=== PATIENT | female | born 1950 | race Caucasian/White ===

== ENCOUNTER 2020-03-11 11:09 | Outpatient (REF) | payer MEDICARE, OTHER, SELFPAY | END 2020-03-11 11:10 | disposition home or self-care (01) | LOC: HO.BBR 11:09 | PROVIDERS: Visit Provider Internal Medicine Hematology & Oncology | DX: E83.110 Hereditary hemochromatosis (principal) | CPT/HCPCS: 99195 ==

== ENCOUNTER 2020-06-11 09:42 | Outpatient (REF) | payer MEDICARE, OTHER, SELFPAY | END 2020-06-11 09:43 | disposition home or self-care (01) | LOC: HO.BBR 09:42 | PROVIDERS: Visit Provider Internal Medicine Hematology & Oncology | DX: Z13.89 Encounter for screening for other disorder (principal) ==

== ENCOUNTER 2020-06-11 10:33 | Outpatient (REF) | payer SELFPAY ==
[2020-06-11 11:43] LABS: Cholesterol 250 mg/dL
== END 2020-06-11 10:34 | disposition home or self-care (01) ==
LOC: HO.LNC 10:33
PROVIDERS: Visit Provider Pathology Anatomic Pathology & Clinical Pathology
DX: Z13.89 Encounter for screening for other disorder (principal)
CPT/HCPCS: 36415; 82465

== ENCOUNTER 2020-08-12 07:58 | Outpatient (REF) | payer OTHER, MEDICARE, SELFPAY | END 2020-08-12 07:59 | disposition home or self-care (01) | LOC: HO.BBR 07:58 | PROVIDERS: Visit Provider Internal Medicine Hematology & Oncology | DX: Z13.89 Encounter for screening for other disorder (principal) ==

== ENCOUNTER 2020-10-14 10:52 | Outpatient (REF) | payer OTHER, MEDICARE, SELFPAY | END 2020-10-14 10:53 | disposition home or self-care (01) | LOC: HO.BBR 10:52 | PROVIDERS: Visit Provider Internal Medicine Hematology & Oncology | DX: Z13.89 Encounter for screening for other disorder (principal) ==

== ENCOUNTER 2020-12-15 11:10 | Outpatient (REF) | payer OTHER, MEDICARE, SELFPAY | END 2020-12-15 11:11 | disposition home or self-care (01) | LOC: HO.BBR 11:10 | PROVIDERS: Visit Provider Internal Medicine Hematology & Oncology | DX: Z13.89 Encounter for screening for other disorder (principal) ==

== ENCOUNTER 2021-02-23 09:56 | Outpatient (REF) | payer OTHER, MEDICARE, SELFPAY | END 2021-02-23 09:57 | disposition home or self-care (01) | LOC: HO.BBR 09:56 | PROVIDERS: Visit Provider Internal Medicine Hematology & Oncology | DX: Z13.89 Encounter for screening for other disorder (principal) ==

== ENCOUNTER 2021-03-10 12:24 | Outpatient (REF) | payer OTHER, MEDICARE, SELFPAY | END 2021-03-10 12:25 | disposition home or self-care (01) | LOC: HO.BBR 12:24 | PROVIDERS: Visit Provider Internal Medicine Hematology & Oncology | DX: Z13.89 Encounter for screening for other disorder (principal) ==

== ENCOUNTER 2021-05-06 10:06 | Outpatient (REF) | payer MEDICARE, OTHER, SELFPAY | END 2021-05-06 10:07 | disposition home or self-care (01) | LOC: HO.BBR 10:06 | PROVIDERS: Visit Provider Internal Medicine Hematology & Oncology | DX: Z13.89 Encounter for screening for other disorder (principal) ==

== ENCOUNTER 2021-07-07 09:56 | Outpatient (REF) | payer MEDICARE, OTHER, SELFPAY | END 2021-07-07 09:57 | disposition home or self-care (01) | LOC: HO.BBR 09:56 | PROVIDERS: Visit Provider Internal Medicine Hematology & Oncology | DX: Z13.89 Encounter for screening for other disorder (principal) ==

== ENCOUNTER 2021-10-27 09:16 | Outpatient (REF) | payer MEDICARE, OTHER, SELFPAY | END 2021-10-27 09:17 | disposition home or self-care (01) | LOC: HO.BBR 09:16 | PROVIDERS: Visit Provider Internal Medicine Hematology & Oncology | DX: Z13.89 Encounter for screening for other disorder (principal) ==

== ENCOUNTER 2021-12-15 11:07 | Outpatient (REF) | payer MEDICARE, OTHER, SELFPAY | END 2021-12-15 11:08 | disposition home or self-care (01) | LOC: HO.BBR 11:07 | PROVIDERS: Visit Provider Internal Medicine Hematology & Oncology | DX: Z13.89 Encounter for screening for other disorder (principal) ==

== ENCOUNTER 2022-02-09 13:47 | Outpatient (REF) | payer MEDICARE, OTHER, SELFPAY | END 2022-02-09 13:48 | disposition home or self-care (01) | LOC: HO.BBR 13:47 | PROVIDERS: Visit Provider Internal Medicine Hematology & Oncology | DX: Z13.89 Encounter for screening for other disorder (principal) ==

== ENCOUNTER 2022-04-06 09:06 | Outpatient (REF) | payer MEDICARE, OTHER, SELFPAY | END 2022-04-06 09:07 | disposition home or self-care (01) | LOC: HO.BBR 09:06 | PROVIDERS: Visit Provider Internal Medicine Hematology & Oncology | DX: Z13.89 Encounter for screening for other disorder (principal) ==

== ENCOUNTER 2022-06-01 08:52 | Outpatient (REF) | payer MEDICARE, OTHER, SELFPAY | END 2022-06-01 08:53 | disposition home or self-care (01) | LOC: HO.BBR 08:52 | PROVIDERS: Visit Provider Internal Medicine Hematology & Oncology | DX: Z13.89 Encounter for screening for other disorder (principal) ==

== ENCOUNTER 2022-07-28 08:53 | Outpatient (REF) | payer MEDICARE, OTHER, SELFPAY | END 2022-07-28 08:54 | disposition home or self-care (01) | LOC: HO.BBR 08:53 | PROVIDERS: Visit Provider Internal Medicine Hematology & Oncology | DX: Z13.89 Encounter for screening for other disorder (principal) ==

== ENCOUNTER 2022-10-05 11:46 | Outpatient (REF) | payer MEDICARE, OTHER, SELFPAY | END 2022-10-05 11:47 | disposition home or self-care (01) | LOC: HO.BBR 11:46 | PROVIDERS: Visit Provider Internal Medicine Hematology & Oncology | DX: Z13.89 Encounter for screening for other disorder (principal) ==

== ENCOUNTER 2022-11-30 09:50 | Outpatient (REF) | payer MEDICARE, OTHER, SELFPAY | END 2022-11-30 09:51 | disposition home or self-care (01) | LOC: HO.BBR 09:50 | PROVIDERS: Visit Provider Internal Medicine Hematology & Oncology | DX: Z13.89 Encounter for screening for other disorder (principal) ==

== ENCOUNTER 2023-03-02 12:07 | Outpatient (REF) | payer MEDICARE, OTHER, SELFPAY | END 2023-03-02 12:08 | disposition home or self-care (01) | LOC: HO.BBR 12:07 | PROVIDERS: Visit Provider Internal Medicine Hematology & Oncology | DX: Z13.89 Encounter for screening for other disorder (principal) ==

== ENCOUNTER 2023-05-03 10:01 | Outpatient (REF) | payer MEDICARE, OTHER, SELFPAY | END 2023-05-03 10:02 | disposition home or self-care (01) | LOC: HO.BBR 10:01 | PROVIDERS: Visit Provider Internal Medicine Hematology & Oncology | DX: Z13.89 Encounter for screening for other disorder (principal) ==

== ENCOUNTER 2023-06-28 08:43 | Outpatient (REF) | payer MEDICARE, OTHER, SELFPAY | END 2023-06-28 08:44 | disposition home or self-care (01) | LOC: HO.BBR 08:43 | PROVIDERS: Visit Provider Internal Medicine Hematology & Oncology | DX: Z13.89 Encounter for screening for other disorder (principal) ==

== ENCOUNTER 2023-08-28 10:42 | Outpatient (REF) | payer MEDICARE, OTHER, SELFPAY | END 2023-08-28 10:43 | disposition home or self-care (01) | LOC: HO.BBR 10:42 | PROVIDERS: Visit Provider Internal Medicine Hematology & Oncology | DX: Z13.89 Encounter for screening for other disorder (principal) ==

== ENCOUNTER 2023-10-27 10:48 | Outpatient (REF) | payer MEDICARE, OTHER, SELFPAY | END 2023-10-27 10:49 | disposition home or self-care (01) | LOC: HO.BBR 10:48 | PROVIDERS: Visit Provider Internal Medicine Hematology & Oncology | DX: Z13.89 Encounter for screening for other disorder (principal) ==

== ENCOUNTER 2023-12-22 09:50 | Outpatient (REF) | payer MEDICARE, OTHER, SELFPAY | END 2023-12-22 09:51 | disposition home or self-care (01) | LOC: HO.BBR 09:50 | PROVIDERS: Visit Provider Internal Medicine Hematology & Oncology | DX: Z13.89 Encounter for screening for other disorder (principal) ==

== ENCOUNTER 2024-02-16 09:38 | Outpatient (REF) | payer MEDICARE, OTHER, SELFPAY | END 2024-02-16 09:39 | disposition home or self-care (01) | LOC: HO.BBR 09:38 | PROVIDERS: Visit Provider Internal Medicine Hematology & Oncology | DX: Z13.89 Encounter for screening for other disorder (principal) ==

== ENCOUNTER 2024-06-14 09:48 | Outpatient (REF) | payer MEDICARE, OTHER, SELFPAY | END 2024-06-14 09:49 | disposition home or self-care (01) | LOC: HO.BBR 09:48 | PROVIDERS: Visit Provider Internal Medicine Hematology & Oncology | DX: Z13.89 Encounter for screening for other disorder (principal) ==

== ENCOUNTER 2024-08-14 09:45 | Outpatient (REF) | payer MEDICARE, OTHER, SELFPAY ==
--- OUTSIDE RECORDS SUMMARY | 2024-08-14 10:54 | XMS_ITS | Clinical Summary ---
Author Organization [address] [place] [address] Address [address] [place] [address] Phone Care Team Providers Care Sales Expert Name Role Phone Lila Vargas MD Primary Care Provider [phone] Allergies Active Allergy Reactions Criticality Noted Date Comments Chlorhexidin-Isopropyl Alcohol 03/10 Medications apixaban (Eliquis) 5 mg tablet Take 1 tablet (5 mg total) by mouth 2 (two) times a day. NOT TAKING 4 Active sertraline (ZOLOFT) 50 mg tablet Take 1 tablet (50 mg total) by mouth 1 (one) time each day. Active torsemide (DEMADEX) 20 mg tablet TAKE 1 TABLET DAILY 90 tablet 1 4 Active dilTIAZem CD (CARDIZEM CD) 180 mg 24 hr capsule Take 1 capsule (180 mg total) by mouth 1 (one) time each day. 90 each 2 5 11/11/19 25 Active dronedarone (Multaq) 400 mg tablet Take 1 tablet (400 mg total) by mouth 2 (two) times a day with meals. 08/13/19 25 Discontinu ed(Therapy completed) dilTIAZem CD (CARDIZEM CD) 120 mg 24 hr capsule Take 1 capsule (120 mg total) by mouth 1 (one) time each day. 90 capsule 3 4 08/13/19 25 Discontinu ed(Therapy completed) Active Problems Problem Noted Date Diagnosed Date PAF (paroxysmal atrial fibrillation) 06/03/2024 Primary hypertension 06/03/2024 Bilateral leg edema 06/03/2024 Hereditary hemochromatosis 05/26/2020 Encounters Date Type Department Care Team Description 08/12/2024 1:10 PM EDT Office Visit [facility] - [facility] [address] [facility] [address] [place] [address] Mackenzie Rodriguez PA Paroxysmal atrial fibrillation (CMS/HCC) (Primary Dx); Primary hypertension; Lower leg edema; PAF (paroxysmal atrial fibrillation) (CMS/HCC); Bilateral leg edema 07/02/2024 11:00 AM EST Office Visit [facility] [address] [place] [id number] Benny Decker MD Hereditary hemochromatosis (CMS/HCC) (Primary Dx) 06/03/2024 12:40 PM EST Office Visit [facility] [address] [facility] [address] [place] [address] Mackenzie Rodriguez PA Paroxysmal atrial fibrillation (CMS/HCC) (Primary Dx); Primary hypertension; PAF (paroxysmal atrial fibrillation) (CMS/HCC) from Last 3 Months Surgical History Surgery Date Site/Laterality Comments ABLATION DONE ON 05/06/2024 AT [facility] W SR INDICATIONS:ATRIAL FIBRILLATIONS Family History Medical History Relation Name Comments Hypertension Father Relation Name Status Comments Father Social History Tobacco Use Types Packs/Day Years Used Date Smoking Tobacco: Former Cigarettes Q uit: 06/05/1999 Smokeless Tobacco: Never Tobacco Cessation:Counseling Given: Not Answered Alcohol Use Standard Drinks/Week Comments Yes 1 (1 standard drink = 0.6 oz pur e alcohol) Comments Unknown Sex and Gender Information Value Date Recorded Sex Assigned at Not on file Legal Sex Female 10:04 PM EST Gender Identity Not on file Sexual Orientation Not on file Obstetrics History Last Filed Vital Signs Vital Sign Reading Time Taken Comments Blood Pressure 147/74 08/12/2024 12:52 PM EDT Patient Blood pressure cuff Pulse 87 08/12/2024 12:52 PM EDT Patietnt blood pressure cuff Temperature 36.8 ??C (98.3 ??F) 07/02/2024 1 0:58 AM EST Respiratory Rate - - Oxygen Saturation 97% 08/12/2024 12: 45 PM EDT Inhaled Oxygen Concentration - - Weight 82.6 kg (182 lb 3.2 oz) 08/12/2024 12:45 PM EDT Height 162.6 cm (5' 4 ) 08/12/2024 12:4 5 PM EDT Body Mass Index 31.27 08/12/2024 12:45 PM EDT Plan of Treatment Upcoming Encounters Date Type Department Care Team (Late st Contact Info) Description 02/17/2025 1:10 PM EDT Office Visit [facility] - [address] [place] [phone] Mackenzie Rodriguez PA [address] [place] [address] [place] [address] 07/02/2025 11:00 AM EST Office Visit [facility] [address] [place] [address] Benny Decker MD [address] [place] [address] Health Maintenance Due Date Last Done Comments Breast Cancer Screening 1950 DTaP,Tdap,and Td Vaccines (1 - Tdap) 1971 Cholesterol Screening (Lipid Panel) 05/14/2022 Colorectal Cancer Screening: Colonoscopy 05/14/2022 Depression Screening 05/14/2022 Falls Risk Assessment 05/14/2022 Hepatitis C Screening 05/14/2022 Osteoporosis Screening (Bone Density Screening) 05/14/2022 Social Influencers of Health Screening 05/14/2022 Medicare Annual Wellness Visit 12/23/2023 12/22/2022 COVID-19 Vaccine ( season) 2024 04/06/2022, 04/01/2021, 08/18/2020, Additional history exists Influenza Vaccine (#1) 2024 , 03/30/2022, 02/24/2021, Additional history exists Hypertension/CHF/CAD Annual BMP Blood Test 06/27/2025 06/27/2024, 05/03/2024 Pneumococcal Vaccine: 50+ Years Completed 12/21/2021, 06/19/2017 Zoster Vaccines Completed 06/06/2022, 03/30/2022 RSV Immunization Patients 60+ Years Old Completed 05/03/2023 HIB Vaccines Aged Out No longer eligi ble based on patient's age to complete this topic HPV Vaccines Aged Out No longer eligi ble based on patient's age to complete this topic Hepatitis A Vaccines Aged Out No long er eligible based on patient's age to complete this topic Hepatitis B Vaccines Aged Out No long er eligible based on patient's age to complete this topic IPV Vaccines Aged Out No longer eligi ble based on patient's age to complete this topic MMR Vaccines Aged Out No longer eligi ble based on patient's age to complete this topic Meningococcal ACWY Vaccine Aged Out N o longer eligible based on patient's age to complete this topic Meningococcal B Vacine Aged Out No lo nger eligible based on patient's age to complete this topic RSV Immunization Patients Under 20 months Aged Out No longer eligible based on patient's age to complete this topic Varicella Vaccines Aged Out No longer eligible based on patient's age to complete this topic Procedures Procedure Name Priority Date/Time Associated Diagnosis Comments ECG 12-LEAD Routine 08/12/2024 1:24 PM EDT Paroxysmal atrial fibrillation (CMS/HCC) ..MISCELLANEOUS REFERENCE LAB TEST 07/02/2024 ..MISCELLANEOUS REFERENCE LAB TEST 07/02/2024 ..MISCELLANEOUS REFERENCE LAB TEST 07/02/2024 CBC WITH AUTO DIFFERENTIAL Routine 06/27/2024 3:11 PM EST Hereditary hemochromatosis (CMS/HCC) COMPREHENSIVE METABOLIC PANEL Routine 06/27/2024 3:11 PM EST Hereditary hemochromatosis (CMS/HCC) FERRITIN Routine 06/27/2024 3:11 PM EST Hereditary hemochromatosis (CMS/HCC) CBC AND DIFFERENTIAL Routine 06/27/2024 3:11 PM EST Hereditary hemochromatosis (CMS/HCC) IRON AND TIBC Routine 06/27/2024 3:11 PM EST Hereditary hemochromatosis (CMS/HCC) ECG 12-LEAD Routine 06/03/2024 1:09 PM EST Paroxysmal atrial fibrillation (CMS/HCC) from Last 3 Months Results * ECG 12 lead (08/12/2024 1:24 PM EDT) Only the most recent of2 resultswithin the time period is included. Ventricular Rate ECG 69 BPM GEMUSE Atrial Rate 69 BPM GEMUSE P-R Interval 152 ms GEMUSE QRS Duration 94 ms GEMUSE Q-T Interval 426 ms GEMUSE QTc 456 ms GEMUSE P Wave [place] 77 degrees GEMUSE R [place] 97 degrees GEMUSE T [place] 7 degrees GEMUSE ECG Interpretation Sinus rhythm with occasional Premature ventricular complexes Nonspecific ST abnormality When compared with ECG of 03-JUN-2024 12:43, No significant change was found Confirmed by INOCENTE KAPOOR ([id number]) on 08/13/2024 12:39:51 PM GEMUSE 08/12/2024 12:5 6 PM EDT 08/13/2024 12:39 PM EDT Mackenzie NICHOLAS ECG ORDERABLES Edited Result - Final GEMUSE * Miscellaneous reference lab test (07/02/2024) Only the most recent of3 resultswithin the time period is included. us Provider Onbase MD LAB BLOOD ORDERABLES Final Re sult * (ABNORMAL) CBC auto differential (06/27/2024 3:11 PM EST) Pathologist [facility] WBC 5.7 4.8 - 10.8 K/mcL LAB HEMETOLOGY METHOD 06/27/2024 6:31 PM EST [facility] RBC 3.80 3.80 - 4.80 M/mcL LAB HEMETOLOGY METHOD 06/27/2024 6:31 PM EST [facility] Hemoglobin 12.3 11.5 - 16.0 g/dL LAB HEMETOLOGY METHOD 06/27/2024 6:[address] [facility] Hematocrit 37.2 35.0 - 47.0 % LAB HEMETOLOGY METHOD 06/27/2024 6:[address] [facility] MCV 98.4(H) 79.0 - 98.0 FL LAB HEMETOLOGY METHOD 06/27/2024 6:[address] [facility] MCH 32.5(H) 27.0 - 32.0 pcg LAB HEMETOLOGY METHOD 06/27/2024 6:[address] [facility] MCHC 33.1 32.0 - 37.0 g/dL LAB HEMETOLOGY METHOD 06/27/2024 6:[address] [facility] RDW 13.9 11.0 - 15.0 % LAB HEMETOLOGY METHOD 06/27/2024 6:[address] [facility] Platelets 173 130 - 400 K/mcL LAB HEMETOLOGY METHOD 06/27/2024 6:[address] [facility] MPV 11.7(H) 7.0 - 11.0 FL LAB HEMETOLOGY METHOD 06/27/2024 6:[address] [facility] NRBC 0.0 <1.0 % LAB HEMETOLOGY METHOD 06/27/2024 6:[address] [facility] NRBC Absolute 0.00 <0.10 K/mcL LAB HEMETOLOGY METHOD 06/27/2024 6:[address] [facility] Neutrophils Relative 55.9 % LAB HEMETOLOGY METHOD 06/27/2024 6:[address] [facility] Lymphocytes Relative 33.1 % LAB HEMETOLOGY METHOD 06/27/2024 6:[address] [facility] Monocytes Relative 7.9 % LAB HEMETOLOGY METHOD 06/27/2024 6:[address] [facility] Eosinophils Relative 2.5 % LAB HEMETOLOGY METHOD 06/27/2024 6:31 PM EST [facility] Basophils Relative 0.4 % LAB HEMETOLOGY METHOD 06/27/2024 6:31 PM EST [facility] Immature Granulocytes Relative 0.2 % LAB HEMETOLOGY METHOD 06/27/2024 6:[address] [facility] Neutrophils Absolute 3.20 1.50 - 7.00 K/mcL LAB HEMETOLOGY METHOD 06/27/2024 6:31 PM EST [facility] Lymphocytes Absolute 1.89 1.00 - 5.00 K/mcL LAB HEMETOLOGY METHOD 06/27/2024 6:[address] [facility] Monocytes Absolute 0.45 0.20 - 1.00 K/mcL LAB HEMETOLOGY METHOD 06/27/2024 6:[address] [facility] Eosinophils Absolute 0.14 0.00 - 0.50 K/mcL LAB HEMETOLOGY METHOD 06/27/2024 6:31 PM EST [facility] Basophils Absolute 0.02 0.00 - 0.20 K/mcL LAB HEMETOLOGY METHOD 06/27/2024 6:[address] [facility] Immature Granulocytes Absolute 0.01 0.00 - 0.03 K/mcL LAB HEMETOLOGY METHOD 06/27/2024 6:31 PM EST [facility] Blood Venous blood specimen / Unknown Venipuncture / Unknown 06/27/2024 3:11 PM EST 06/27/2024 3:11 PM EST us Benny Decker MD LAB BLOOD ORDERABLES Final Result [facility] [address] [place] [address], * Iron and TIBC (06/27/2024 3:11 PM EST) Iron 60 40 - 150 mcg/dL LAB CHEMISTRY METHOD 06/27/2024 6:48 PM EST [facility] TIBC 308 250 - 450 mcg/dL LAB CHEMISTRY METHOD 06/27/2024 6:[address] [facility] Iron Saturation 19 15 - 50 % LAB CHEMISTRY METHOD 06/27/2024 6:[address] [facility] Blood Venous blood specimen / Unknown Venipuncture / Unknown 06/27/2024 3:11 PM EST 06/27/2024 3:11 PM EST us Benny Decker MD LAB BLOOD ORDERABLES Final Result Performing Organization Address [facility]/ZIP Co de Phone Number [facility] [address] [place] [address], [place] [phone] * Ferritin (06/27/2024 3:11 PM EST) Ferritin 22 8 - 252 ng/mL LAB CHEMISTRY METHOD 06/27/2024 6:[address] [facility] Blood Venous blood specimen / Unknown Venipuncture / Unknown 06/27/2024 3:11 PM EST 06/27/2024 3:11 PM EST us Benny Decker MD LAB BLOOD ORDERABLES Final Result Performing Organization Address [facility]/ZIP Co de Phone Number [facility] [address] [place] [address], [place] [phone] * (ABNORMAL) Comprehensive metabolic panel (06/27/2024 3:11 PM EST) Sodium 139 133 - 145 mmol/L LAB CHEMISTRY METHOD 06/27/2024 6:[address] [facility] Potassium 3.6 3.5 - 5.5 mmol/L LAB CHEMISTRY METHOD 06/27/2024 6:[address] [facility] Chloride 102 96 - 110 mmol/L LAB CHEMISTRY METHOD 06/27/2024 6:[address] [facility] CO2 30 21 - 32 mmol/L LAB CHEMISTRY METHOD 06/27/2024 6:[address] [facility] Anion Gap 7 3 - 11 LAB CHEMISTRY METHOD 06/27/2024 6:[address] [facility] Glucose 79 70 - 100 mg/dL LAB CHEMISTRY METHOD 06/27/2024 6:[address] [facility] BUN 10 5 - 25 mg/dL LAB CHEMISTRY METHOD 06/27/2024 6:[address] [facility] Creatinine 0.80 0.50 - 1.10 mg/dL LAB CHEMISTRY METHOD 06/27/2024 6:[address] [facility] eGFR 78 >=60 mL/min/1. 73m2 LAB CHEMISTRY METHOD 06/27/2024 6:[address] [facility] Comment:Calculation based on the??Chronic Kidney Disease Epidemiology Collaboration (CKD-EPI) equation refit??without adjustment for race. BUN/Creatinine Ratio 12.5 LAB CHEMISTRY METHOD 06/27/2024 6:[address] [facility] Calcium 8.4(L) 8.5 - 10.5 mg/dL LAB CHEMISTRY METHOD 06/27/2024 6:[address] [facility] AST (SGOT) 18 10 - 42 unit/L LAB CHEMISTRY METHOD 06/27/2024 6:[address] [facility] ALT (SGPT) 21 10 - 60 unit/L LAB CHEMISTRY METHOD 06/27/2024 6:[address] [facility] Alkaline Phosphatase 72 42 - 121 unit/L LAB CHEMISTRY METHOD 06/27/2024 6:[address] [facility] Total Protein 7.0 6.0 - 8.0 g/dL LAB CHEMISTRY METHOD 06/27/2024 6:[address] [facility] Albumin 3.6 3.2 - 5.0 g/dL LAB CHEMISTRY METHOD 06/27/2024 6:[address] [facility] Total Bilirubin 0.3 0.0 - 1.4 mg/dL LAB CHEMISTRY METHOD 06/27/2024 6:48 PM EST [facility] Blood Venous blood specimen / Unknown Venipuncture / Unknown 06/27/2024 3:11 PM EST 06/27/2024 3:11 PM EST us Benny Decker MD LAB BLOOD ORDERABLES Final Result [facility] [address] [place] [address], [place] [phone] from Last 3 Months Insurance MEDICARE [facility] Care Teams Sales Expert Relationship Specialty Start Date End Date Lila Vargas MD [address] [facility] [address] [place] [address] PCP - General Internal Medicine 05/03/24
--- OUTSIDE RECORDS SUMMARY | 2024-08-14 10:54 | XMS_ITS | Encounter Summary ---
Author Organization [facility] Address [address] [place] [address] Care Team Providers Care Approver Name Role Phone Lila Vargas MD Primary Care Provider [phone] Reason for Visit * Reason Comments Follow-up Encounter Details Date Type Department Care Team (Late st Contact Info) Description 08/12/2024 1:10 PM EDT Office Visit [facility] - [address] [place] [address] Mackenzie Rodriguez PA [address] [place] [address] Paroxysmal atrial fibrillation (CMS/HCC) (Primary Dx); Primary hypertension; Lower leg edema; PAF (paroxysmal atrial fibrillation) (CMS/HCC); Bilateral leg edema Social History Tobacco Use Types Packs/Day Years [...] on file Sexual Orientation Not on file documented as of this encounter Last Filed Vital Signs Vital Sign Reading Time Taken Comments Blood Pressure 147/74 08/12/2024 12:52 PM EDT Patient Blood pressure cuff Pulse 87 08/12/2024 12:52 PM EDT Patietnt blood pressure cuff Temperature - - Respiratory Rate - - Oxygen Saturation 97% 08/12/2024 12: 45 PM EDT Inhaled Oxygen Concentration - - Weight 82.6 kg (182 lb 3.2 oz) 08/12/2024 12:45 PM EDT Height 162.6 cm (5' 4 ) 08/12/2024 12:4 5 PM EDT Body Mass Index 31.27 08/12/2024 12:45 PM EDT documented in this encounter Ordered Prescriptions Prescription Sig Dispense Quantity Refills Last Filled Start Date End Date dilTIAZem CD (CARDIZEM CD) 180 mg 24 hr capsule Take 1 capsule (180 mg total) by mouth 1 (one) time each day. 90 each 2 08/12/2024 documented in this encounter Progress Notes * YU Salinas - 08/12/2024 1:10 PM EDT Please call with any questions or concerns Mackenzie Rodriguez PA-C [phone] [facility] [address] [place] [id number] Increase torsemide to 40 mgs daily Repeat labs in one week non fasting Monitor BP at home aafter 10 mins of rest goal < 130 /80 Report back in 2 weeks with BP log and if your legs are better * YU Salinas - 08/12/2024 1:10 PM EDT Images from the original note were not included. PRIMARY SHAKE TABLE OPERATOR: Jose Dye MD PCP: MD Michelle Liriano Hernesto is a 74 y.o. old female Past medical history includes PAF noted May 2019 - underwent successful A. fib ablation with PVI on February 2021. She had recurrent A-fib Jan 2024 underwent VIRAJ cardioversion and Multaq was initiated for suppression- May 2024- underwent left atrial posterior wall isolation by PFA, EP study confirmation of isolation of all pulmonary veins. CHADS Vasc score 3- gender, age, HTN - chronically on AC , multaq stopped after 2 months Hypertension Prior smoking Possible Raynaud's phenomenon Hereditary hemochromatosis Mild SCOTT with sustained hypoxemia- pt would not use CPAP Cardiac testing- - Echo March 2024 mildly dilated left atrium EF 55 to 60% in A-fib mild TR Presents today for evaluation of her A-fib. She notes numerous sodium indiscretions with worsening lower leg edema her blood pressure has been borderline control at home mostly in the high 130s systolic. She continues to consume alcohol 2 to 3 glasses of wine a day will be leaving for [place] at the first week of September. She has had no perceived recurrent A-fib uses her cardia mobile and a blood pressure cuff with no elevated heart rates. She denies presyncope, syncope, chest pain at rest or exertion, dyspnea at rest or exertion, orthopnea, PND positive for lower leg edema admits she has been quite sedentary over the last few weeks. ACTIVE MEDICATIONS: Outpatient Medications Marked as Taking for the 08/12/24 encounter (Office Visit) with YU Salinas Medication Sig Dispense Refill apixaban (Eliquis) 5 mg tablet Take 1 tablet (5 mg total) by mouth 2 (two) times a day. NOT TAKING sertraline (ZOLOFT) 50 mg tablet Take 1 tablet (50 mg total) by mouth 1 (one) time each day. torsemide (DEMADEX) 20 mg tablet TAKE 1 TABLET DAILY 90 tablet 1 [DISCONTINUED] dilTIAZem CD (CARDIZEM CD) 120 mg 24 hr capsule Take 1 capsule (120 mg total) by mouth 1 (one) time each day. 90 capsule 3 [DISCONTINUED] dronedarone (Multaq) 400 mg tablet Take 1 tablet (400 mg total) by mouth 2 (two) times a day with meals. ALLERGIES: Allergies Allergen Reactions Chlorhexidin-Isopropyl Alcohol FAMILY HISTORY: Family History Problem Relation Name Age of Onset Hypertension Father SOCIAL HISTORY: Social History Tobacco Use Smoking status: Former Current packs/day: 0.00 Types: Cigarettes Quit date: 06/05/1999 Years since quittin.2 Smokeless tobacco: Never Substance Use Topics Alcohol use: Yes Alcohol/week: 1.0 - 2.0 standard drink of alcohol PHYSICAL EXAM: Blood pressure (!) 147/74, pulse 87, height 1.626 m (64 ), weight 82.6 kg (182 lb 3.2 oz), SpO2 97%. Body mass index is 31.27 kg/m??. Physical Exam Constitutional: General: She is not in acute distress. Appearance: She is obese. She is not diaphoretic. Eyes: Pupils: Pupils are equal, round, and reactive to light. Neck: Vascular: No carotid bruit. Cardiovascular: Rate and Rhythm: Normal rate and regular rhythm. Heart sounds: Normal heart sounds. Pulmonary: Breath sounds: Normal breath sounds. Abdominal: Palpations: Abdomen is soft. Musculoskeletal: General: No swelling. Cervical back: No rigidity. Right lower leg: Edema present. Left lower leg: Edema present. Comments: Bilateral 1-2+ mid tib edema Skin: General: Skin is warm and dry. Coloration: Skin is not jaundiced. Neurological: General: No focal deficit present. Mental Status: She is alert and oriented to person, place, and time. Psychiatric: Mood and Affect: Mood normal. EKG: Sinus rhythm with a PAC rate 69 bpm PAST MEDICAL HISTORY: Patient Active Problem List Diagnosis Date Noted PAF (paroxysmal atrial fibrillation) (CMS/HCC) 06/03/2024 Primary hypertension 06/03/2024 Bilateral leg edema 06/03/2024 Hereditary hemochromatosis (CMS/HCC) 05/26/2020 As per AHA guidelines and previously established plan of care by Dr. Darrian Ghosh MD we discussed the following today: ASSESSMENT/PLAN: Problem List Items Addressed This Visit Bilateral leg edema PAF (paroxysmal atrial fibrillation) (CMS/HCC) Relevant Medications dilTIAZem CD (CARDIZEM CD) 180 mg 24 hr capsule Primary hypertension Relevant Medications dilTIAZem CD (CARDIZEM CD) 180 mg 24 hr capsule Other Relevant Orders Basic metabolic panel N-Terminal Probnp Other Visit Diagnoses Paroxysmal atrial fibrillation (CMS/HCC) - Primary Relevant Medications dilTIAZem CD (CARDIZEM CD) 180 mg 24 hr capsule Other Relevant Orders ECG 12 lead (Completed) Basic metabolic panel N-Terminal Probnp Lower leg edema Relevant Orders Basic metabolic panel N-Terminal Probnp Stage IIId PAF status post ablation as [id number] score 4 risk benefits of long-term anticoagulation reviewed and agrees to continue. Multaq was discontinued a month ago no perceived recurrence. Encouraged to abstain from alcohol and caffeine. Lower leg edema after numerous dietary indiscretions and daily alcohol and untreated SCOTT-increase torsemide to 40 mg daily with surveillance labs in 1 week. If significant improvement in lower leg edema she can reduce back to 20 mg daily and take an additional 2-3 times a week as needed if blood work is stable. Reviewed the importance of sodium restriction, suggested knee-high compression stockings elevate legs when sitting ambulate every hour. Hypertension with decreasing diltiazem blood pressure has risen she resumed Cardizem 180 mg daily with improvement but not well-controlled. Increase torsemide as above with continued monitoring of her blood pressure goal consistently less than 130/80 after 10 minutes of rest. She is can call me in 2 weeks prior to leaving for [place] to review her blood pressures as well as any improvement in lower leg edema. Thank you for allowing us to participate in the care of this patient. Today's documentation was made using voice recognition software.This note may contain grammatical errors secondary to this software. Cosigned by Darrian Ghosh MD at 08/13/2024 5:18 PM EDT documented in this encounter Plan of Treatment Upcoming Encounters Date Type Department Care Team (Late st Contact Info) Description 02/17/2025 1:10 PM EDT Office Visit [facility] - [address] [place] [id number] Mackenzie Rodriguez PA [address] [place] [address] 07/02/2025 11:00 AM EST Office Visit [facility] [address] [place] [address] Benny Decker MD [address] [place] [address] Scheduled Orders Name Type Priority Associated Diagnoses Orde r Schedule Basic metabolic panel Lab Routine Paroxysmal atrial fibrillation (CMS/HCC) Primary hypertension Lower leg edema 1 Occurrences starting 08/12/2024 until 08/12/2025 N-Terminal Probnp Lab Routine Paroxysmal atrial fibrillation (CMS/HCC) Primary hypertension Lower leg edema 1 Occurrences starting 08/12/2024 until 08/12/2025 documented as of this encounter Procedures Procedure Name Priority Date/Time Associated Diagnosis Comments ECG 12-LEAD Routine 08/12/2024 1:24 PM EDT Paroxysmal atrial fibrillation (CMS/HCC) documented in this encounter Results * ECG 12 lead (08/12/2024 1:24 PM EDT) Ventricular Rate ECG 69 BPM GEMUSE Atrial Rate 69 BPM GEMUSE P-R Interval 152 ms GEMUSE QRS Duration 94 ms GEMUSE Q-T Interval 426 ms GEMUSE QTc 456 ms GEMUSE P Wave [place] 77 degrees GEMUSE R [place] 97 degrees GEMUSE T [place] 7 degrees GEMUSE ECG Interpretation Sinus rhythm with occasional Premature ventricular complexes Nonspecific ST abnormality When compared with ECG of 03-JUN-2024 12:43, No significant change was found Confirmed by INOCENTE KAPOOR ([id number]) on 08/13/2024 12:39:51 PM GEMUSE 08/12/2024 12:5 6 PM EDT 08/13/2024 12:39 PM EDT us Mackenzie NICHOLAS ECG ORDERABLES Edited Result - Final GEMUSE documented in this encounter Visit Diagnoses Diagnosis Paroxysmal atrial fibrillation (CMS/HCC)- Primary Atrial fibrillation Primary hypertension Unspecified essential hypertension Lower leg edema PAF (paroxysmal atrial fibrillation) (CMS/HCC) Atrial fibrillation Bilateral leg edema Edema documented in this encounter Discontinued Medications Medication Sig Discontinue Reason Start Date End Da te dronedarone (Multaq) 400 mg tablet Take 1 tablet (400 mg total) by mouth 2 (two) times a day with meals. Therapy completed 08/12/2024 dilTIAZem CD (CARDIZEM CD) 120 mg 24 hr capsule Take 1 capsule (120 mg total) by mouth 1 (one) time each day. Therapy completed 06/03/2024 08/12/2024 documented as of this encounter Care Teams Approver Relationship Specialty Start Date End Date Lila Vargas MD [address] [place] [address] PCP - General Internal Medicine 05/03/24 documented as of this encounter
--- OUTSIDE RECORDS SUMMARY | 2024-08-14 10:54 | XMS_ITS | Clinical Summary ---
Author Organization [facility] Address [address] [place] [address] Care Team Providers Care Neonatal Specialist Name Role Phone Lila Vargas MD Primary Care Provider [phone] Allergies No known active allergies Medications Medication Sig Dispensed Refills Start Date End Date Status torsemide (DEMADEX) 20 MG tablet Take 1 tablet (20 mg total) by mouth daily. 0 Active apixaban (ELIQUIS) 5 MG TABS tablet Take 1 tablet (5 mg total) by mouth every 12 (twelve) hours. 0 Active vitamin D3 (VITAMIN D3) 25 MCG (1000 UT) tablet Take 1 tablet (1,000 Units total) by mouth daily. 0 Active sertraline (ZOLOFT) 50 MG tablet Take 1 tablet (50 mg total) by mouth daily. 0 Active dilTIAZem (CARDIZEM CD) 120 MG 24 hr capsule Take 1 capsule (120 mg total) by mouth daily. 0 Active APPLE CIDER VINEGAR PO Take by mouth. 0 Active Active Problems Problem Noted Date Diagnosed Date Hereditary hemochromatosis 05/26/2020 Social History Tobacco Use Types Packs/Day Years Used Date Smoking Tobacco: Never Assessed Sex and Gender Information Value Date Recorded Sex Assigned at Not on file Gender Identity Not on file Sexual Orientation Not on file Job Start Date Occupation Industry Not on file Not on file Not on file Last Filed Vital Signs Vital Sign Reading Time Taken Comments Blood Pressure 142/68 06/28/2023 11:40 AM EST Pulse 83 06/28/2023 11:40 AM EST Temperature 36.4 ??C (97.6 ??F) 06/28/2023 11:[address] Respiratory Rate - - Oxygen Saturation 98% 06/28/2023 11:40 AM EST Inhaled Oxygen Concentration - - Weight 80.3 kg (177 lb) 06/28/2023 11:40 AM EST Height 165.1 cm (5' 5 ) 06/28/2023 11:40 AM EST Body Mass Index 29.45 06/28/2023 11:40 AM EST Plan of Treatment Health Maintenance Due Date Last Done Comments Hepatitis C Screening 1950 COVID-19 Vaccine (#1) 1952 Depression Screening 1964 Preventative Health Evaluation 1970 DTap / Tdap / Td (1 - Tdap) 1971 Colon Cancer Screening (Colonoscopy) 1997 Breast Cancer Screening (Mammogram) 2002 Shingrix-Zoster Vaccine (1 of 2) 2002 Fall Risk Assessment 2017 Osteoporosis Screening (DEXA Scan) 2017 Pneumococcal Vaccine (1 of 1 - PCV) 2017 Influenza Vaccine (#1) 2024 RSV Adult > 60+ Yrs or Pregn ant (1 - 1-dose 75+ series) 2027 Hepatitis B Vaccines Aged Out No long er eligible based on patient's age to complete this topic RSV Ped < 20 months Aged Out No longe r eligible based on patient's age to complete this topic Care Teams Neonatal Specialist Relationship Specialty Start Date End Date Lila Vargas MD [address] [place] [address] PCP - General Internal Medicine 05/26/22
== END 2024-08-14 09:46 | disposition home or self-care (01) ==
LOC: HO.BBR 09:45
PROVIDERS: Visit Provider Internal Medicine Hematology & Oncology
DX: Z13.89 Encounter for screening for other disorder (principal)

== ENCOUNTER 2024-10-15 09:48 | Outpatient (REF) | payer MEDICARE, OTHER, SELFPAY ==
--- OUTSIDE RECORDS SUMMARY | 2024-10-15 10:33 | XMS_ITS | Clinical Summary ---
Author Organization [address] [facility] Address [address] [place] [address] Phone Care Team Providers Care Couples Therapist Name Role Phone Lila Vargas MD Primary Care Provider [phone] Allergies Active Allergy Reactions Criticality Noted Date Comments Chlorhexidin-Isopropyl Alcohol 03/10 Medications apixaban (Eliquis) 5 mg tablet Take 1 tablet (5 mg total) by mouth 2 (two) times a day. NOT TAKING 12/25/2023 Active sertraline (ZOLOFT) 50 mg tablet Take 1 tablet (50 mg total) by mouth 1 (one) time each day. Active torsemide (DEMADEX) 20 mg tablet TAKE 1 TABLET DAILY 90 tablet 1 04/24/2024 Active dilTIAZem CD (CARDIZEM CD) 180 mg 24 hr capsule Take 1 capsule (180 mg total) by mouth 1 (one) time each day. 90 each 2 08/12/2024 Active Active Problems Problem Noted Date Diagnosed Date PAF (paroxysmal atrial fibri llation) (CMS/HCC V24, CMS/HCC V28) 06/03/2024 Primary hypertension 06/03/2024 Bilateral leg edema 06/03/2024 Hereditary hemochromatosis (CMS/HCC V24) 020 Encounters Date Type Department Care Team Description 10/15/2024 Telephone [facility] Hematology Oncology [address] [place] [phone] Benny Decker MD 08/22/2024 Telephone [facility] - [facility] [address] [facility] [address] [place] [address] Mackenzie Rodriguez PA 08/12/2024 1:10 PM EDT Office Visit [facility] Cardiology [facility] [address] [facility] [address] [place] [address] Mackenzie Rodriguez PA Paroxysmal atrial fibrillation (CMS/HCC V24, CMS/HCC V28) (Primary Dx); Primary hypertension; Lower leg edema; PAF (paroxysmal atrial fibrillation) (CMS/HCC V24, CMS/HCC V28); Bilateral leg edema from Last 3 Months Surgical History Surgery Date Site/Laterality Comments [place] 05/06/2024 [place] [facility] INDICATIONS:ATRIAL FIBRILLATIONS Family History Medical [...] Description 02/17/2025 1:10 PM EDT Office Visit [facility] Cardiology [facility] 154 300 [facility] [address] [place] [phone] Mackenzie Rodriguez PA [address] [facility] [address] [place] [address] 07/02/2025 11:00 AM EST Office Visit [facility] Hematology Oncology [address] [place] [address] Benny Decker MD [address] [place] [address] Health Maintenance Due Date Last [...] 04/01/2021, 08/18/2020, Additional history exists Influenza Vaccine (Season Ended) 2025 03/25/2023, 03/30/2022, 02/24/2021, Additional history exists Hypertension/CHF/CAD Annual BMP Blood Test 08/21/2025 08/21/2024, 06/27/2024, 05/03/2024 Pneumococcal Vaccine: 50+ Years Completed 12/21/2021, 06/19/2017 Zoster Vaccines Completed 06/06/2022, 03/30/2022 RSV Immunization Adult Patients Completed 05/03/2023 HIB Vaccines Aged Out No [...] age to complete this topic Meningococcal B Vaccine Aged Out No l onger eligible based on patient's age to complete this topic RSV Immunization Patients Under 20 months Aged Out No longer eligible based on patient's age to complete this topic Varicella Vaccines Aged Out No longer eligible based on patient's age to complete this topic Procedures Procedure Name Priority Date/Time Associated Diagnosis Comments POTASSIUM Routine 08/29/2024 8:52 AM EDT Hypokalemia FERRITIN Routine 08/29/2024 8:52 AM EDT Hereditary hemochromatosis (CMS/HCC V24) IRON AND TIBC Routine 08/29/2024 8:52 AM EDT Hereditary hemochromatosis (CMS/HCC V24) CBC WITH AUTO DIFFERENTIAL Routine 08/21/2024 2:58 PM EDT Hereditary hemochromatosis (CMS/HCC V24) CBC AND DIFFERENTIAL Routine 08/21/2024 2:58 PM EDT Hereditary hemochromatosis (CMS/HCC V24) BASIC METABOLIC PANEL Routine 08/21/2024 2:58 PM EDT Paroxysmal atrial fibrillation (CMS/HCC V24, CMS/HCC V28) Primary hypertension Lower leg edema B-TYPE NATRIURETIC PEPTIDE Routine 08/21/2024 2:58 PM EDT Paroxysmal atrial fibrillation (CMS/HCC V24, CMS/HCC V28) Primary hypertension Lower extremity edema ECG 12-LEAD Routine 08/12/2024 1:24 PM EDT Paroxysmal atrial fibrillation (CMS/HCC V24, CMS/HCC V28) from Last 3 Months Results * (ABNORMAL) Iron and TIBC (08/29/2024 8:52 AM EDT) Iron 38(L) 40 - 150 mcg/dL LAB CHEMISTRY METHOD 08/29/2024 1:51 PM EDT [facility] TIBC 387 250 - 450 mcg/dL LAB CHEMISTRY METHOD 08/29/2024 1:51 PM EDT [facility] Iron Saturation 10(L) 15 - 50 % LAB CHEMISTRY METHOD 08/29/2024 1:51 PM EDT [facility] Blood Venous blood specimen / Unknown Venipuncture / Unknown 08/29/2024 8:52 AM EDT 08/29/2024 8:52 AM EDT Benny Decker MD LAB BLOOD ORDERABLES Final Result Performing Organization Address [facility]/ZIP Co de Phone Number [facility] [address] [place] [address], [place] [phone] * Potassium (08/29/2024 8:52 AM EDT) Potassium 4.0 3.5 - 5.5 mmol/L LAB CHEMISTRY METHOD 08/29/2024 1:51 PM EDT [facility] Blood Venous blood specimen / Unknown Venipuncture / Unknown 08/29/2024 8:52 AM EDT 08/29/2024 8:52 AM EDT Mackenzie NICHOLAS LAB BLOOD ORDERABLES Final Resul t [facility] [address] [place] [address], [place] [phone] * Ferritin (08/29/2024 8:52 AM EDT) Ferritin 19 8 - 252 ng/mL LAB CHEMISTRY METHOD 08/29/2024 2:42 PM EDT [facility] Blood Venous blood specimen / Unknown Venipuncture / Unknown 08/29/2024 8:52 AM EDT 08/29/2024 8:52 AM EDT us Benny Decker MD LAB BLOOD ORDERABLES Final Result [facility] [address] [place] [address], [place] [phone] * (ABNORMAL) CBC auto differential (08/21/2024 2:58 PM EDT) WBC 5.1 4.8 - 10.8 K/mcL LAB HEMETOLOGY METHOD 08/21/2024 6:24 PM EDT [facility] RBC 3.80 3.80 - 4.80 M/mcL LAB HEMETOLOGY METHOD 08/21/2024 6:24 PM EDT [facility] Hemoglobin 12.6 11.5 - 16.0 g/dL LAB HEMETOLOGY METHOD 08/21/2024 6:24 PM EDT [facility] Hematocrit 37.8 35.0 - 47.0 % LAB HEMETOLOGY METHOD 08/21/2024 6:24 PM EDT [facility] MCV 99.7(H) 79.0 - 98.0 FL LAB HEMETOLOGY METHOD 08/21/2024 6:24 PM EDT [facility] MCH 33.2(H) 27.0 - 32.0 pcg LAB HEMETOLOGY METHOD 08/21/2024 6:24 PM EDT [facility] MCHC 33.3 32.0 - 37.0 g/dL LAB HEMETOLOGY METHOD 08/21/2024 6:24 PM EDT [facility] RDW 14.2 11.0 - 15.0 % LAB HEMETOLOGY METHOD 08/21/2024 6:24 PM EDT [facility] Platelets 188 130 - 400 K/mcL LAB HEMETOLOGY METHOD 08/21/2024 6:24 PM EDT [facility] MPV 11.6(H) 7.0 - 11.0 FL LAB HEMETOLOGY METHOD 08/21/2024 6:24 PM EDT [facility] NRBC 0.0 <1.0 % LAB HEMETOLOGY METHOD 08/21/2024 6:[facility] NRBC Absolute 0.00 <0.10 K/mcL LAB HEMETOLOGY METHOD 08/21/2024 6:24 PM EDT [facility] Neutrophils Relative 47.7 % LAB HEMETOLOGY METHOD 08/21/2024 6:24 PM EDT [facility] Lymphocytes Relative 39.8 % LAB HEMETOLOGY METHOD 08/21/2024 6:24 PM [facility] Monocytes Relative 9.6 % LAB HEMETOLOGY METHOD 08/21/2024 6:24 PM [facility] Eosinophils Relative 2.1 % LAB HEMETOLOGY METHOD 08/21/2024 6:24 PM EDT [facility] Basophils Relative 0.6 % LAB HEMETOLOGY METHOD 08/21/2024 6:24 PM [facility] Immature Granulocytes Relative 0.2 % LAB HEMETOLOGY METHOD 08/21/2024 6:24 PM [facility] Neutrophils Absolute 2.44 1.50 - 7.00 K/mcL LAB HEMETOLOGY METHOD 08/21/2024 6:24 PM EDT [facility] Lymphocytes Absolute 2.04 1.00 - 5.00 K/mcL LAB HEMETOLOGY METHOD 08/21/2024 6:24 PM EDT [facility] Monocytes Absolute 0.49 0.20 - 1.00 K/mcL LAB HEMETOLOGY METHOD 08/21/2024 6:24 PM [facility] Eosinophils Absolute 0.11 0.00 - 0.50 K/mcL LAB HEMETOLOGY METHOD 08/21/2024 6:24 PM EDT [facility] Basophils Absolute 0.03 0.00 - 0.20 K/[facility] HEMETOLOGY METHOD 08/21/2024 6:24 PM EDT [facility] Immature Granulocytes Absolute 0.01 0.00 - 0.03 K/[facility] HEMETOLOGY METHOD 08/21/2024 6:24 PM EDT [facility] Blood Venous blood specimen / Unknown Venipuncture / Unknown 08/21/2024 2:58 PM EDT 08/21/2024 2:58 PM EDT Benny Decker MD LAB BLOOD ORDERABLES Final Result [facility] [address] [place] [address], [place] [phone] * (ABNORMAL) B-type natriuretic peptide (08/21/2024 2:58 PM EDT) BNP 153(H) <=100 pcg/mL LAB CHEMISTRY METHOD 08/21/2024 6:44 PM EDT [facility] Blood Venous blood specimen / Unknown Venipuncture / Unknown 08/21/2024 2:58 PM EDT 08/21/2024 2:58 PM EDT us Mackenzie NICHOLAS LAB BLOOD ORDERABLES Final Resul t [facility] [address] [place] [address], [place] [phone] * (ABNORMAL) Basic metabolic panel (08/21/2024 2:58 PM EDT) Sodium 136 133 - 145 mmol/L LAB CHEMISTRY METHOD 08/21/2024 6:32 PM EDT [facility] Potassium 3.3(L) 3.5 - 5.5 mmol/L LAB CHEMISTRY METHOD 08/21/2024 6:32 PM [facility] Chloride 96 96 - 110 mmol/L LAB CHEMISTRY METHOD 08/21/2024 6:32 PM [facility] CO2 35(H) 21 - 32 mmol/L LAB CHEMISTRY METHOD 08/21/2024 6:32 PM [facility] Anion Gap 5 3 - 11 LAB CHEMISTRY METHOD 08/21/2024 6:32 PM [facility] Glucose 100 70 - 100 mg/dL LAB CHEMISTRY METHOD 08/21/2024 6:32 PM [facility] BUN 13 5 - 25 mg/dL LAB CHEMISTRY METHOD 08/21/2024 6:32 PM [facility] Creatinine 0.95 0.50 - 1.10 mg/dL LAB CHEMISTRY METHOD 08/21/2024 6:32 PM [facility] eGFR 64 >=60 mL/min/1. 73m2 LAB CHEMISTRY METHOD 08/21/2024 6:32 PM [facility] Comment:Calculation based on the??Chronic Kidney Disease Epidemiology Collaboration (CKD-EPI) equation refit??without adjustment for race. BUN/Creatinine Ratio 13.7 LAB CHEMISTRY METHOD 08/21/2024 6:32 PM [facility] Calcium 9.7 8.5 - 10.5 mg/dL LAB CHEMISTRY METHOD 08/21/2024 6:32 PM [facility] Blood Venous blood specimen / Unknown Venipuncture / Unknown 08/21/2024 2:58 PM EDT 08/21/2024 2:58 PM EDT us Mackenzie NICHOLAS LAB BLOOD ORDERABLES Final Resul t [facility] [address] [place] [address], [place] [phone] * ECG 12 lead (08/12/2024 1:24 PM EDT) Ventricular Rate ECG 69 BPM GEMUSE Atrial Rate 69 BPM GEMUSE P-R Interval 152 ms GEMUSE QRS Duration 94 ms GEMUSE Q-T Interval 426 ms GEMUSE QTc 456 ms GEMUSE P Wave [place] 77 degrees GEMUSE R [place] 97 degrees GEMUSE T [place] 7 degrees GEMUSE ECG Interpretation Sinus rhythm with occasional Premature ventricular complexes Nonspecific ST abnormality When compared with ECG of 03-JUN-2024 12:43, No significant change was found Confirmed by INOCENTE KAPOOR ([id number]) on 08/13/2024 12:39:51 PM GEMUSE 08/12/2024 12:5 6 PM EDT 08/13/2024 12:39 PM EDT us Mackenzie NICHOLAS ECG ORDERABLES Edited Result - Final GEMUSE from Last 3 Months Insurance MEDICARE [facility] Care Teams Couples Therapist Relationship Specialty Start Date End Date Lila Vargas MD [address] [facility] [place] [address] PCP - General Internal Medicine 05/03/24
--- OUTSIDE RECORDS SUMMARY | 2024-10-15 10:33 | XMS_ITS | Clinical Summary ---
Author Organization [facility] Address [address] [place] [address] Care Team Providers Care Upper Tier Name Role Phone Lila Vargas MD Primary Care Provider [phone] Allergies No known active allergies Medications Medication [...] age to complete this topic Care Teams Upper Tier Relationship Specialty Start Date End Date Lila Vargas MD [address] [place] [address] PCP - General Internal Medicine 05/26/22
--- OUTSIDE RECORDS SUMMARY | 2024-10-15 10:33 | XMS_ITS | Encounter Summary ---
Author Organization [facility] Address [address] [place] [address] Care Team Providers Care Bolt Sorter Name Role Phone Lila Vargas MD Primary Care Provider [phone] Encounter Details Date Type Department Care Team (Late st Contact Info) Description 10/15/2024 Telephone [facility] Hematology Oncology [address] [place] [phone] Benny Decker MD [address] [place] [phone] Social History Tobacco Use Types Packs/Day Years Used Date Smoking Tobacco: Former Cigarettes Q uit: 06/05/1999 Smokeless Tobacco: Never Alcohol Use Standard Drinks/Week Comments Yes 1 (1 standard drink = 0.6 oz pur e alcohol) Comments Unknown Sex and Gender Information Value Date Recorded Sex Assigned at Not on file Legal Sex Female 10:04 PM EST Gender Identity Not on file Sexual Orientation Not on file documented as of this encounter Progress Notes * Ayala Jolley - 10/15/2024 10:24 AM EDT Patient seeking new therapeutic phlebotomy order to be sent to [facility]. documented in this encounter Plan of Treatment Upcoming Encounters Date Type Department Care Team (Late st Contact Info) Description 02/17/2025 1:10 PM EDT Office Visit [facility] - [facility] [address] [facility] [address] [place] [phone] Mackenzie Rodriguez PA [address] [facility] [address] [place] [address] 07/02/2025 11:00 AM EST Office Visit [facility] Hematology Oncology [address] [place] [phone] Benny Decker MD [address] [place] [phone] documented as of this encounter Visit Diagnoses Not on filedocumented in this encounter Care Teams Bolt Sorter Relationship Specialty Start Date End Date Lila Vargas MD [address] [facility] [address] [place] [address] PCP - General Internal Medicine 05/03/24 documented as of this encounter
== END 2024-10-15 09:49 | disposition home or self-care (01) ==
LOC: HO.BBR 09:48
PROVIDERS: Visit Provider Internal Medicine Hematology & Oncology
DX: Z13.89 Encounter for screening for other disorder (principal)

== ENCOUNTER 2024-12-11 10:56 | Outpatient (REF) | payer MEDICARE, OTHER, SELFPAY ==
--- OUTSIDE RECORDS SUMMARY | 2024-12-11 12:03 | XMS_ITS | Clinical Summary ---
Author Organization [facility] Address [address] [place] [address] Care Team Providers Care Transportation Planner Name Role Phone Lila Vargas MD Primary Care Provider Allergies No known active allergies Medications Medication [...] 83 06/28/2023 11:40 AM EST Temperature 36.4 C (97.6 F) 06/28/2023 11:40 AM EST Respiratory Rate - - Oxygen Saturation 98% [...] 1 - PCV) 2017 Influenza Vaccine (#1) 2025 RSV Adult > 60+ Yrs or Pregn ant (1 - 1-dose 75+ series) 2027 Hepatitis B Vaccines Aged Out No long er eligible based on patient's age to complete this topic RSV Ped < 20 months Aged Out No longe r eligible based on patient's age to complete this topic Care Teams Transportation Planner Relationship Specialty Start Date End Date Lila Vargas MD [address] [facility] [address] [employer] [place] [address] PCP - General Internal Medicine 05/26/22
== END 2024-12-11 10:57 | disposition home or self-care (01) ==
LOC: HO.BBR 10:56
PROVIDERS: Visit Provider Internal Medicine Hematology & Oncology
DX: Z13.89 Encounter for screening for other disorder (principal)

== ENCOUNTER 2025-02-05 09:36 | Outpatient (REF) | payer MEDICARE, OTHER, SELFPAY ==
--- OUTSIDE RECORDS SUMMARY | 2025-02-05 10:29 | XMS_ITS | Clinical Summary ---
Author Organization 300 [facility] Address [address] [place] [address] Phone Care Team Providers Care Family Intervention Specialist Name Role Phone Lila Vargas MD Primary Care Provider [phone] Allergies Active Allergy Reactions Criticality Noted Date Comments Chlorhexidin-Isopropyl Alcohol 03/10 Medications sertraline (ZOLOFT) 50 mg tablet Take 1 tablet (50 mg total) by mouth 1 (one) time each day. Active torsemide (DEMADEX) 20 mg tablet TAKE 1 TABLET DAILY 90 tablet 1 4 Active dilTIAZem CD (CARDIZEM CD) 120 mg 24 hr capsule Take 1 capsule (120 mg total) by mouth 1 (one) time each day. Active Eliquis 5 mg tablet TAKE 1 TABLET TWICE A DAY 180 tablet 3 5 Active dronedarone (MULTAQ) 400 mg tablet Take 1 tablet (400 mg total) by mouth 2 (two) times a day with meals. 180 tablet 1 5 01/24/20 25 Discontinu ed(Therapy completed) Active Problems Problem Noted Date Diagnosed Date Primary hypertension 01/23/2025 PAF (paroxysmal atrial fibri llation) (CMS/HCC V24, CMS/HCC V28) 06/03/2024 Primary hypertension 06/03/2024 Bilateral leg edema 06/03/2024 Hereditary hemochromatosis (CMS/HCC V24) 020 Encounters Date Type Department Care Team Description 01/27/2025 Telephone [facility] [address] [place] [address] Germania Beckham MD 01/23/2025 10:10 AM EDT Office Visit [facility] [address] [place] [address] Mackenzie Rodriguez PA PAF (paroxysmal atrial fibrillation) (CMS/HCC V24, CMS/HCC V28) (Primary Dx); Bilateral leg edema; Primary hypertension 12/09/2024 Telephone [facility] [address] [place] [address] Jose Dye MD 11/29/2024 12:28 PM EDT - 11/29/2024 11:59 PM EDT Hospital [facility] Cardiac Pediatric Clinical Dietician [address] [place] [phone] Sonja Pandey MD Slanda, Summer, CRNA Korobkov, Vitaliy, DO PAF (paroxysmal atrial fibrillation) (CMS/HCC V24, CMS/HCC V28) Discharge Disposition: Home or Self Care 11/26/2024 Telephone [facility] [address] [place] [address] Germania Beckham MD 11/19/2024 Telephone [facility] [address] [place] [address] Mackenzie Rodriguez PA 11/18/2024 2:40 PM EDT Lab Draw Station - [address] [facility] [address] [facility] [place] [id number] PAF (paroxysmal atrial fibrillation) (CMS/HCC V24, CMS/HCC V28); Bilateral leg edema 11/13/2024 2:40 PM EDT Office Visit [facility] [address] [place] [address] Mackenzie Rodriguez PA PAF (paroxysmal atrial fibrillation) (CMS/HCC V24, CMS/HCC V28) (Primary Dx); Bilateral leg edema 11/07/2024 Telephone [facility] - [facility] [address] [facility] [address] [place] [phone] Jose Dye MD from Last 3 Months Surgical History Surgery Date Site/Laterality Comments [place] [facility] [place] IND[place]S:ATRIAL FIBRILLATIONS [place]BLATION DONE [place] 12/26/2024 [place] [facility] [place] IND[place]S:Atrial Fibrillation. Family History Medical History Relation Name Comments [...] Sign Reading Time Taken Comments Blood Pressure 124/68 01/23/2025 10:11 AM EDT Pulse 72 01/23/2025 10:11 AM EDT Temperature 36.8 C (98.3 F) 07/02/2024 10:58 AM EST Respiratory Rate 11 11/29/2024 12:47 PM EDT Oxygen Saturation 98% 01/23/2025 10:11 AM EDT Inhaled Oxygen Concentration - - Weight 83 kg (183 lb) 01/23/2025 10:11 AM EDT Height 162.6 cm (5' 4 ) 01/23/2025 10:11 AM EDT Body Mass Index 31.41 01/23/2025 10:11 AM EDT Plan of Treatment Upcoming Encounters Date Type Department Care Team (Late st Contact Info) Description 04/30/2025 11:10 AM EST Office Visit [facility] - [facility] [address] [facility] [address] [place] [phone] Mackenzie Rodriguez PA [address] [place] [address] [place] [address] 07/02/2025 11:00 AM EST Office Visit [facility] Hematology Oncology [address] [place] [phone] Benny Decker MD [address] [place] [phone] Health Maintenance Due Date Last Done Comments Breast Cancer Screening 1952 DTaP,Tdap,and Td Vaccines (1 - Tdap) 1971 Cholesterol Screening (Lipid Panel) 05/14/2022 Colorectal Cancer Screening: Colonoscopy 05/14/2022 Falls Risk Assessment 05/14/2022 Hepatitis C Screening 05/14/2022 Osteoporosis Screening (Bone Density Screening) 05/14/2022 Social Influencers of Health Screening 05/14/2022 Medicare Annual Wellness Visit 12/23/2023 12/22/2022 Depression Screening 06/05/2024 COVID-19 Vaccine ( season) 2025 04/06/2022, 04/01/2021, 08/18/2020, Additional history exists Influenza Vaccine (#1) 2025 , 03/30/2022, 02/24/2021, Additional history exists Hypertension/CHF/CAD Annual BMP Blood Test 12/18/2025 12/18/2024, 11/18/2024, 08/21/2024, Additional history exists Pneumococcal Vaccine: 50+ Years Completed 12/21/2021, 06/19/2017 [...] Date/Time Associated Diagnosis Comments ECG 12-LEAD Routine 01/23/2025 10:22 AM EDT PAF (paroxysmal atrial fibrillation) (CMS/HCC V24, CMS/HCC V28) COMPLETE BLOOD COUNT Routine 12/18/2024 11:55 AM EDT PAF (paroxysmal atrial fibrillation) (CMS/HCC V24, CMS/HCC V28) PROTHROMBIN TIME WITH INR Routine 12/18/2024 11:55 AM EDT PAF (paroxysmal atrial fibrillation) (CMS/HCC V24, CMS/HCC V28) BASIC METABOLIC PANEL Routine 12/18/2024 11:55 AM EDT PAF (paroxysmal atrial fibrillation) (CMS/HCC V24, CMS/HCC V28) ECG EXTERNAL Routine 12/09/2024 2:14 PM EDT ECG EXTERNAL Routine 12/09/2024 2:12 PM EDT ECG EXTERNAL Routine 12/09/2024 2:09 PM EDT PROCEDURAL ECG STAT 11/29/2024 1:07 PM EDT THYROID STIMULATING HORMONE WITH REFLEX TO FREE T4 AND FREE T3 Routine 11/18/2024 2:41 PM EDT PAF (paroxysmal atrial fibrillation) (CMS/HCC V24, CMS/HCC V28) Bilateral leg edema COMPLETE BLOOD COUNT Routine 11/18/2024 2:41 PM EDT PAF (paroxysmal atrial fibrillation) (CMS/HCC V24, CMS/HCC V28) Bilateral leg edema BASIC METABOLIC PANEL Routine 11/18/2024 2:41 PM EDT PAF (paroxysmal atrial fibrillation) (CMS/HCC V24, CMS/HCC V28) Bilateral leg edema ECG 12-LEAD Routine 11/13/2024 2:47 PM EDT PAF (paroxysmal atrial fibrillation) (CMS/HCC V24, CMS/HCC V28) ECG EXTERNAL Routine 11/12/2024 10:22 AM EDT ECG EXTERNAL Routine 11/12/2024 10:21 AM EDT ECG EXTERNAL Routine 11/12/2024 10:19 AM EDT from Last 3 Months Results * ECG 12 lead (01/23/2025 10:22 AM EDT) Only the most recent of2 resultswithin the time period is included. Ventricular Rate ECG 72 BPM GEMUSE Atrial Rate 72 BPM GEMUSE P-R Interval 156 ms GEMUSE QRS Duration 86 ms GEMUSE Q-T Interval 418 ms GEMUSE QTc 457 ms GEMUSE P Wave [place] 77 degrees GEMUSE R [place] 71 degrees GEMUSE T [place] 27 degrees GEMUSE ECG Interpretation Normal sinus rhythm Nonspecific ST and T wave abnormality Abnormal ECG When compared with ECG of 29-NOV-2024 13:07, Questionable change in QRS axis Nonspecific T wave abnormality now evident in Anterior leads Confirmed by Renate TAYLOR JOHN ([id number]) on 02/02/2025 4:55:08 PM GEMUSE 01/23/2025 10:1 9 AM EDT 02/02/2025 4:55 PM EDT us Mackenzie NICHOLAS ECG ORDERABLES Edited Result - Final GEMUSE * (ABNORMAL) Prothrombin time with INR (12/18/2024 11:55 AM EDT) Pathologist [facility] Protime 16.9(H) 10.6 - 13.9 sec LAB COAGULATION METHOD 12/18/2024 3:[address] [facility] INR 1.4 LAB COAGULATION METHOD 12/18/2024 3:[address] [facility] Blood Venous blood specimen / Unknown Venipuncture / Unknown 12/18/2024 11:55 AM EDT 12/18/2024 11:55 AM EDT us Germania Beckham MD LAB BLOOD ORDERABLES Final Result [facility] [address] [place] [address], * (ABNORMAL) Complete blood count (12/18/2024 11:55 AM EDT) Only the most recent of2 resultswithin the time period is included. WBC 5.9 4.8 - 10.8 K/mcL LAB HEMETOLOGY METHOD 12/18/2024 3:[address] [facility] RBC 3.90 3.80 - 4.80 M/mcL LAB HEMETOLOGY METHOD 12/18/2024 3:[address] [facility] Hemoglobin 11.5 11.5 - 16.0 g/dL LAB HEMETOLOGY METHOD 12/18/2024 3:[address] [facility] Hematocrit 36.9 35.0 - 47.0 % LAB HEMETOLOGY METHOD 12/18/2024 3:[address] [facility] MCV 94.4 79.0 - 98.0 FL LAB HEMETOLOGY METHOD 12/18/2024 3:[address] [facility] MCH 29.4 27.0 - 32.0 pcg LAB HEMETOLOGY METHOD 12/18/2024 3:[address] [facility] MCHC 31.2(L) 32.0 - 37.0 g/dL LAB HEMETOLOGY METHOD 12/18/2024 3:[address] [facility] RDW 14.7 11.0 - 15.0 % LAB HEMETOLOGY METHOD 12/18/2024 3:[address] [facility] Platelets 213 130 - 400 K/mcL LAB HEMETOLOGY METHOD 12/18/2024 3:[address] [facility] MPV 11.1(H) 7.0 - 11.0 FL LAB HEMETOLOGY METHOD 12/18/2024 3:[address] [facility] NRBC 0.0 <1.0 % LAB HEMETOLOGY METHOD 12/18/2024 3:[address] [facility] NRBC Absolute 0.00 <0.10 K/mcL LAB HEMETOLOGY METHOD 12/18/2024 3:[address] [facility] Blood Venous blood specimen / Unknown Venipuncture / Unknown 12/18/2024 11:55 AM EDT 12/18/2024 11:55 AM EDT Germania Beckham MD LAB BLOOD ORDERABLES Final Result [facility] [address] [place] [address], [place] [phone] * Basic metabolic panel (12/18/2024 11:55 AM EDT) Only the most recent of2 resultswithin the time period is included. Sodium 138 133 - 145 mmol/L LAB CHEMISTRY METHOD 12/18/2024 3:47 PM [facility] Potassium 4.0 3.5 - 5.5 mmol/L LAB CHEMISTRY METHOD 12/18/2024 3:47 PM [facility] Chloride 102 96 - 110 mmol/L LAB CHEMISTRY METHOD 12/18/2024 3:47 PM [facility] CO2 32 21 - 32 mmol/L LAB CHEMISTRY METHOD 12/18/2024 3:47 PM [facility] Anion Gap 4 3 - 11 LAB CHEMISTRY METHOD 12/18/2024 3:47 PM [facility] Glucose 81 70 - 100 mg/dL LAB CHEMISTRY METHOD 12/18/2024 3:47 PM [facility] BUN 13 5 - 25 mg/dL LAB CHEMISTRY METHOD 12/18/2024 3:47 PM [facility] Creatinine 0.81 0.50 - 1.10 mg/dL LAB CHEMISTRY METHOD 12/18/2024 3:[address] [facility] eGFR 77 >=60 mL/min/1. 73m2 LAB CHEMISTRY METHOD 12/18/2024 3:[address] [facility] Comment:Calculation based on the Chronic Kidney Disease Epidemiology Collaboration (CKD-EPI) equation refit without adjustment for race. BUN/Creatinine Ratio 16.0 LAB CHEMISTRY METHOD 12/18/2024 3:[address] [facility] Calcium 9.5 8.5 - 10.5 mg/dL LAB CHEMISTRY METHOD 12/18/2024 3:[address] [facility] Blood Venous blood specimen / Unknown Venipuncture / Unknown 12/18/2024 11:55 AM EDT 12/18/2024 11:55 AM EDT Germania Beckham MD LAB BLOOD ORDERABLES Final Result [facility] [address] [place] [address], * ECG-External (12/09/2024 2:14 PM EDT) Only the most recent of6 resultswithin the time period is included. Historical Provider ECG ORDERABLES Final Res ult * ECG 12 lead - Procedural (No Charge) (11/29/2024 1:07 PM EDT) Ventricular Rate ECG 69 BPM GEMUSE Atrial Rate 69 BPM GEMUSE P-R Interval 170 ms GEMUSE QRS Duration 86 ms GEMUSE Q-T Interval 432 ms GEMUSE QTc 462 ms GEMUSE P Wave [place] 74 degrees GEMUSE T [place] 10 degrees GEMUSE ECG Interpretation Normal sinus rhythm Nonspecific T wave abnormality When compared with ECG of 13-NOV-2024 14:16, (unconfirmed) Sinus rhythm has replaced Atrial fibrillation Confirmed by Renate CUNNINGHAM YUFENG ([id number]) on 11/29/2024 7:36:08 PM GEMUSE 11/29/2024 1:07 PM EDT 11/29/2024 7:36 PM EDT us Sonja Pandey MD ECG ORDERABLES Final Result GEMUSE * Thyroid stimulating hormone with reflex to free t4 and free t3 (11/18/2024 2:41 PM EDT) TSH 2.62 0.40 - 4.00 mcIU/mL LAB CHEMISTRY METHOD 11/18/2024 5:[address] [facility] Blood Venous blood specimen / Unknown Venipuncture / Unknown 11/18/2024 2:41 PM EDT 11/18/2024 2:53 PM EDT Mackenzie NICHOLAS LAB BLOOD ORDERABLES Final Resul t [facility] [address] [place] [address], [place] [phone] from Last 3 Months Insurance MEDICARE [facility] Care Teams Family Intervention Specialist Relationship Specialty Start Date End Date Lila Vargas MD [address] [place] [address] PCP - General Internal Medicine 05/03/24
--- OUTSIDE RECORDS SUMMARY | 2025-02-05 10:29 | XMS_ITS | Clinical Summary ---
Author Organization [facility] Address [address] [place] [address] Care Team Providers Care Refractory Grinder Operator Name Role Phone Lila Vargas MD Primary Care Provider [phone] Allergies No known active allergies Medications Medication [...] age to complete this topic Care Teams Refractory Grinder Operator Relationship Specialty Start Date End Date Lila Vargas MD [address] [facility] [address] [place] [address] PCP - General Internal Medicine 05/26/22
== END 2025-02-05 09:37 | disposition home or self-care (01) ==
LOC: HO.BBR 09:36
PROVIDERS: Visit Provider Internal Medicine Hematology & Oncology
DX: Z13.89 Encounter for screening for other disorder (principal)

== ENCOUNTER 2025-04-03 13:35 | Outpatient (REF) | payer MEDICARE, OTHER, SELFPAY ==
--- OUTSIDE RECORDS SUMMARY | 2025-04-03 16:36 | XMS_ITS | Clinical Summary ---
Author Organization 300 [facility] Address [address] [place] [address] Phone Care Team Providers Care Energy Risk Management Analyst Name Role Phone Lila Vargas MD Primary Care Provider [phone] Allergies Active Allergy Reactions Criticality Noted Date [...] DAY 180 tablet 3 5 Active dronedarone (Multaq) 400 mg tablet TAKE 1 TABLET BY MOUTH TWICE A DAY WITH MEALS 180 tablet 2 5 Active dronedarone (Multaq) 400 mg tablet Take 1 tablet (400 mg total) by mouth 2 (two) times a day with meals. 60 each 2 5 03/24/20 25 Discontinued Active Problems Problem Noted Date Diagnosed Date Primary hypertension 01/23/2025 PAF (paroxysmal atrial fibri llation) (CMS/HCC V24, CMS/HCC V28) 06/03/2024 Primary hypertension 06/03/2024 Bilateral leg edema 06/03/2024 Hereditary hemochromatosis ([facility] V24) 020 Encounters Date Type Department Care Team Description 03/17/2025 Telephone Gastroenterology - [address] [place] [address] Brayan Barreto MD 01/27/2025 Telephone [facility]iology [facility] [address] [place] [address] Germania Beckham MD 01/23/2025 10:10 AM EDT Office Visit [facility]iology [facility] [address] [place] [address] Mackenzie Rodriguez PA PAF (paroxysmal atrial fibrillation) (CMS/HCC V24, CMS/HCC V28) (Primary Dx); Bilateral leg edema; Primary hypertension from Last 3 Months Surgical History Surgery Date Site/Laterality Comments ABLATION DONE ON 05/06/2024 AT [facility] W SR INDICATIONS:ATRIAL FIBRILLATIONS ABLATION DONE ON 12/26/2024 AT [facility] [place] SR INDICATIONS:Atrial Fibrillation. Family History Medical [...] Description 04/30/2025 11:10 AM EST Office Visit [facility] - [facility] [address] [facility] [address] [place] [address] Mackenzie Rodriguez PA [address] [place] [address] [address] [place] [phone] 07/02/2025 11:00 AM EST Office Visit [facility] Hematology Oncology [address] [place] [address] Benny Decker MD [address] [place] [address] Health Maintenance Due Date Last Done Comments Breast Cancer Screening 1950 Colorectal Cancer Screening: Colonoscopy 1950 DTaP,Tdap,and Td Vaccines (1 - Tdap) 1971 Cholesterol Screening (Lipid Panel) 05/14/2022 Falls Risk Assessment 05/14/2022 Hepatitis C [...] (paroxysmal atrial fibrillation) (CMS/HCC V24, CMS/HCC V28) from Last 3 Months or Most Recently Relevant to Health Maintenance Results * ECG 12 lead (01/23/2025 10:22 AM EDT) Ventricular Rate ECG 72 BPM GEMUSE Atrial Rate 72 BPM GEMUSE P-R Interval 156 ms GEMUSE QRS Duration 86 ms GEMUSE Q-T Interval 418 ms GEMUSE QTc 457 ms GEMUSE P Wave [place] 77 degrees GEMUSE R [place] 71 degrees GEMUSE T [place] 27 degrees GEMUSE ECG Interpretation Normal sinus rhythm Nonspecific ST and T wave abnormality Abnormal ECG When compared with ECG of 29-NOV-2024 13:07, Questionable change in QRS axis Nonspecific T wave abnormality now evident in Anterior leads Confirmed by Renate TAYLOR JOHN ([id number]) on 02/02/2025 4:55:08 PM GEMUSE 01/23/2025 10:1 9 AM EDT 02/02/2025 4:55 PM EDT us Mackenzie NICHOLAS ECG ORDERABLES Edited Result - Final GEMUSE * Basic metabolic panel (12/18/2024 11:55 AM EDT) Sodium 138 133 - 145 mmol/L LAB CHEMISTRY METHOD 12/18/2024 3:47 PM [facility] Potassium 4.0 3.5 - 5.5 mmol/L LAB CHEMISTRY METHOD 12/18/2024 3:47 PM [facility] Chloride 102 96 - 110 mmol/L LAB CHEMISTRY METHOD 12/18/2024 3:47 PM [facility] CO2 32 21 - 32 mmol/L LAB CHEMISTRY METHOD 12/18/2024 3:47 PM [facility] Anion Gap 4 3 - 11 LAB CHEMISTRY METHOD 12/18/2024 3:47 PM [facility] Glucose 81 70 - 100 mg/dL LAB CHEMISTRY METHOD 12/18/2024 3:47 PM [facility] BUN 13 5 - 25 mg/dL LAB CHEMISTRY METHOD 12/18/2024 3:47 PM [facility] Creatinine 0.81 0.50 - 1.10 mg/dL LAB CHEMISTRY METHOD 12/18/2024 3:47 PM [facility] eGFR 77 >=60 mL/min/1. 73m2 LAB CHEMISTRY METHOD 12/18/2024 3:47 PM [facility] Comment:Calculation based on the Chronic Kidney Disease Epidemiology Collaboration (CKD-EPI) equation refit without adjustment for race. BUN/Creatinine Ratio 16.0 LAB CHEMISTRY METHOD 12/18/2024 3:47 PM [facility] Calcium 9.5 8.5 - 10.5 mg/dL LAB CHEMISTRY METHOD 12/18/2024 3:47 PM [facility] Blood Venous blood specimen / Unknown Venipuncture / Unknown 12/18/2024 11:55 AM EDT 12/18/2024 11:55 AM EDT us Germania Beckham MD LAB BLOOD ORDERABLES Final Result [facility] [address] [place] [address], from Last 3 Months or Most Recently Relevant to Health Maintenance Insurance MEDICARE [facility] Care Teams Energy Risk Management Analyst Relationship Specialty Start Date End Date Lila Vargas MD [address] [place] [address] PCP - General Internal Medicine 05/03/24
--- OUTSIDE RECORDS SUMMARY | 2025-04-03 16:36 | XMS_ITS | Clinical Summary ---
Author Organization [facility] Address [address] [place] [address] Care Team Providers Care Dimensional Engineer Name Role Phone Lila Vargas MD Primary Care Provider [phone] Allergies No known active allergies Medications Medication [...] age to complete this topic Care Teams Dimensional Engineer Relationship Specialty Start Date End Date Lila Vargas MD [address] [facility] [address] [place] [address] PCP - General Internal Medicine 05/26/22
== END 2025-04-03 13:36 | disposition home or self-care (01) ==
LOC: HO.BBR 13:35
PROVIDERS: Visit Provider Internal Medicine Hematology & Oncology
DX: Z13.89 Encounter for screening for other disorder (principal)